=== PATIENT | female | born 1990 | race American Indian/Alaskan Native ===

== ENCOUNTER 2018-03-06 12:07 | Emergency (ER) | payer MEDICAID ==
[2018-03-06 13:15] LABS: Bilirubin,Urine NEG (Negative); Blood,Urine NEG (Negative); Color,Urine Yellow (Yellow); Protein,Urine <15 mg/dL mg/dL (Negative); Urobilinogen,Urine < 2.0 mg/dL (<2.0)
[2018-03-06 13:17] LABS: HCG Qualitative,Urine Positive (Negative)
[2018-03-06 13:29] LABS: Basophils % (Auto) 0.3 % (0.0-1.8); Eosinophils # (Auto) 0.1 K/mm3 (0.0-0.4); Eosinophils % (Auto) 0.4 % (0.0-4.3); Hematocrit 33.5 % (30.3-42.9); Hemoglobin 11.8 gm/dl (10.1-14.3); Lymphocytes # (Auto) 2.2 K/mm3 (1.2-5.4); Lymphocytes % (Auto) 18.4 % (13.4-35.0); Mean Corpuscular HGB Conc 35 % (30-34); Mean Corpuscular Hemoglobin 28 pg (28-32); Mean Corpuscular Volume 78 fl (79-97); Monocytes # (Auto) 0.6 K/mm3 (0.0-0.8); Monocytes % (Auto) 5.2 % (0.0-7.3); Platelet Count 218 K/mm3 (140-440); Red Cell Distribution Width 13.5 % (13.2-15.2)
[2018-03-06 13:36] LABS: BUN/Creatinine Ratio 10; Blood Urea Nitrogen 5 mg/dL (7-17); Calcium 8.8 mg/dL (8.4-10.2); Hemolysis Index 2
--- NOTE | 2018-03-06 14:24 | Emergency Department Report ---
ED Fall HPI - General Chief Complaint: Pain General Stated Complaint: FALL Time Seen by Provider: 03/06/18 13:55 Source: patient, EMS Mode of arrival: Stretcher Limitations: No Limitations - History of Present Illness Initial Comments: She is a 27-year-old female presents emergency room after a fall. Patient states she was running from a dog jumped over a fence and fell loss consciousness and woke up. Patient called EMS. Patient complains of bilateral thigh pain that is a 4 out of 10. Patient states the pain is worse with movement and better with rest. Patient states that she is unable to remember the entire event and is unsure if she hit her head. Patient is unsure how long she was unconscious. Patient states after she jumped a fence she fell and that is all she remembers. Patient has no recollection of the entire event after climbing the fence. Patient states she had some leg weakness but that is starting to improve. Patient denies back pain. Patient states she is having a headache at this time And is a 10 out of 10. MD Complaint: fall -: Sudden Fall From: from height (distance) When Fall Occurred: unsure Fall Witnessed: no Place Fall Occurred: street Loss of Consciousness: yes Prolonged Down Time?: unclear Symptoms Prior to Fall: none Location: head Location - Extremities: Left: Thigh, Right: Thigh Severity: moderate Severity scale (0 -10): 4 Quality: dull Context: other (fell after jumping over a fence) Associated Symptoms: denies: headache, neck pain, numbness, weakness, chest paint, shortness of breath, abdominal pain, hematuria, unable to walk, lightheaded, vertigo, confusion - Related Data Previous Rx's Medication Instructions Recorded Last Taken Type Sulfamethoxazole/Trimethoprim 1 each PO BID #14 tablet 12/07/13 Unknown Rx [Bactrim Ds] Allergies Allergy/AdvReac Type Severity Reaction Status Date / Time No Known Allergies Allergy Verified 12/07/13 08:28 ED Review of Systems ROS: Stated complaint: FALL Other details as noted in HPI Constitutional: denies: chills, fever Eyes: denies: eye pain, eye discharge, vision change ENT: denies: ear pain, throat pain Respiratory: denies: cough, shortness of breath, wheezing Cardiovascular: denies: chest pain, palpitations Endocrine: no symptoms reported Gastrointestinal: denies: abdominal pain, nausea, diarrhea Genitourinary: denies: urgency, dysuria, discharge Musculoskeletal: denies: back pain, joint swelling, arthralgia Skin: denies: rash, lesions Neurological: headache, weakness. denies: paresthesias Psychiatric: denies: anxiety, depression Hematological/Lymphatic: denies: easy bleeding, easy bruising ED Past Medical Hx - Past Medical History Previous Medical History?: No - Surgical History Past Surgical History?: No - Family History Family history: no significant - Social History Smoking Status: Never Smoker Substance Use Type: None - Medications Home Medications: Home Medications Medication Instructions Recorded Confirmed Last Taken Type Sulfamethoxazole/Trimethoprim 1 each PO BID #14 tablet 12/07/13 Unknown Rx [Bactrim Ds] ED Physical Exam - General Limitations: Physical Limitation General appearance: alert, in no apparent distress - Head Head exam: Present: atraumatic, normocephalic - Eye Eye exam: Present: normal appearance - ENT ENT exam: Present: mucous membranes moist - Neck Neck exam: Present: normal inspection - Respiratory Respiratory exam: Present: normal lung sounds bilaterally. Absent: respiratory distress - Cardiovascular Cardiovascular Exam: Present: regular rate, normal rhythm. Absent: systolic murmur, diastolic murmur, rubs, gallop - GI/Abdominal GI/Abdominal exam: Present: soft, distended, normal bowel sounds, other (gravid abdomen). Absent: tenderness, guarding, rebound, rigid - Extremities Exam Extremities exam: Present: normal inspection, full ROM, tenderness (tenderness noted over bilateral thighs.), normal capillary refill. Absent: pedal edema, joint swelling, calf tenderness - Back Exam Back exam: Present: normal inspection, full ROM. Absent: tenderness, CVA tenderness (R), CVA tenderness (L), muscle spasm, paraspinal tenderness, vertebral tenderness - Neurological Exam Neurological exam: Present: alert, oriented X3 - Psychiatric Psychiatric exam: Present: normal affect, normal mood - Skin Skin exam: Present: warm, dry, intact, normal color. Absent: rash ED Course Vital Signs 03/06/18 03/06/18 03/06/18 12:38 14:17 14:35 Temperature 98 F Pulse Rate 103 H 90 Respiratory 18 14 18 Rate Blood Pressure 97/67 Blood Pressure 116/59 [Right] O2 Sat by Pulse 100 98 100 Oximetry 03/06/18 17:39 Temperature 98.5 F Pulse Rate 89 Respiratory 16 Rate Blood Pressure Blood Pressure 123/61 [Right] O2 Sat by Pulse 99 Oximetry - Reevaluation(s) Reevaluation #1: Discussed all results with patient. Patient voiced understanding of results. Discharge instructions given to patient return to ER shocks given to patient. Patient voiced understanding of all instructions. Patient states her headache improved. Patient given concussion precautions. 03/06/18 18:20 ED Medical Decision Making - Lab Data Result diagrams: 03/06/18 13:03 03/06/18 13:03 - Radiology Data Radiology results: report reviewed FINAL REPORT EXAM: CT HEAD/BRAIN WO CON HISTORY: Altered Mental Status TECHNIQUE: Noncontrast CT axial images of the brain. PRIORS: None. FINDINGS: No parenchymal mass, mass effect, hemorrhage, midline shift or hydrocephalus. No evidence of acute cortical infarct. No abnormal, extra-axial fluid or air collection. Osseous calvarium grossly intact. IMPRESSION: 1. No acute intracranial findings. Transcribed By: [facility] Dictated By: YENNIFER RESTREPO MD Electronically Authenticated By: YENNIFER RESTREPO MD Signed Date/Time: 03/06/181724 TECHNIQUE: Frontal views of right femur. PRIORS: None. FINDINGS: No apparent fracture or dislocation. Soft tissues grossly unremarkable. IMPRESSION: 1. No acute osseous abnormality. Transcribed By: [facility] Dictated By: YENNIFER RESTREPO MD Electronically Authenticated By: YENNIFER RESTREPO MD Signed Date/Time: 03/06/181729 FINAL REPORT EXAM: XR FEMUR 1V LT HISTORY: garth thigh pain and fall TECHNIQUE: Frontal views of left femur. PRIORS: None. FINDINGS: No apparent fracture or dislocation. Soft tissues grossly unremarkable. IMPRESSION: 1. No acute osseous abnormality. Transcribed By: [facility] Dictated By: YENNIFER RESTREPO MD Electronically Authenticated By: YENNIFER RESTREPO MD Signed Date/Time: 03/06/181729 FINAL REPORT EXAM: US OB gt; = 14 WEEKS FETUS HISTORY: fall. pregancny TECHNIQUE: Transabdominal sonography of the pelvis. PRIORS: None. FINDINGS: There is a single, live intrauterine . Ultrasound estimated gestational age is 15 weeks 5 days. Ultrasound estimated date of delivery is 23 August 2018. heart motion is detected and heart rate is 152 beats per minute. Remainder of uterus and adnexa are grossly unremarkable. Cervical length 4.3 cm IMPRESSION: 1. Single, live intrauterine . Transcribed By: [facility] Dictated By: YENNIFER RESTREPO MD Electronically Authenticated By: YENNIFER RESTREPO MD Signed Date/Time: 03/06/18 1603 - Medical Decision Making Patient is a 27-year-old female presents emergency room after a fall with complaints of headache and leg pain. Patient is able 4. Patient's headache is improved with Tylenol. Patient had a CT of her head which is negative. Patient has CT done due to the fact that the patient was having such bad incidental amnesia and concussive symptoms. Patient stable during the entire stay in the ER. Patient answering questions appropriately at discharge. Patient voiced understanding of all discharge instructions. - Differential Diagnosis headache. Head injury. Concussion. Leg pain. FAll Critical care attestation.: If time is entered above; I have spent that time in minutes in the direct care of this critically ill patient, excluding procedure time. ED Disposition Clinical Impression: Consciousness loss, transient, Leg pain, bilateral Fall Qualifiers: Encounter type: initial encounter Qualified Code(s): W19.XXXA - Unspecified fall, initial encounter Concussion Qualifiers: Encounter type: initial encounter Loss of consciousness presence/duration: with LOC of unspecified duration Qualified Code(s): S06.0X9A - Concussion with loss of consciousness of unspecified duration, initial encounter Qualifiers: Weeks of gestation: 15 weeks Qualified Code(s): Z3A.15 - 15 weeks gestation of Thigh contusion Qualifiers: Encounter type: initial encounter Laterality: unspecified laterality Qualified Code(s): S70.10XA - Contusion of unspecified thigh, initial encounter Disposition: DC-01 TO HOME OR SELFCARE Is pt being admited?: No Does the pt Need Aspirin: No Condition: Stable Instructions: (ED), Concussion (ED), Minor Head Injury (ED), Post Concussion Syndrome (ED) Additional Instructions: Patient to follow up with primary care in 3-5 days. Patient to follow-up with [facility] in 2-3 days. Patient to return to ER if condition worsens. Patient to take Tylenol when necessary for pain. Patient to avoid NSAIDs. Patient to take vitamin. Patient to increase water. Patient to rest. Patient to follow concussion precautions. Patient to not drive. Referrals: PRIMARY CARE, [Primary Care Provider] - 3-5 Days Forms: Work/School Release Form(ED) Time of Disposition: 18:23
[2018-03-06] MEDS ORDERED: HYDROGEN PEROXIDE ONE (14:59)
--- NOTE | 2018-03-06 16:04 | Ultrasound Report ---
FINAL REPORT EXAM: US OB > = 14 WEEKS FETUS HISTORY: fall. pregancny TECHNIQUE: Transabdominal sonography of the pelvis. PRIORS: None. FINDINGS: There is a single, live intrauterine . Ultrasound estimated gestational age is 15 weeks 5 days. Ultrasound estimated date of delivery is 23 August 2018. heart motion is detected and heart rate is 152 beats per minute. Remainder of uterus and adnexa are grossly unremarkable. Cervical length 4.3 cm IMPRESSION: 1. Single, live intrauterine .
[2018-03-06] MEDS ORDERED: TYLENOL ONE (16:36)
--- NOTE | 2018-03-06 17:26 | Cat Scan Report ---
FINAL REPORT EXAM: CT HEAD/BRAIN WO CON HISTORY: Altered Mental Status TECHNIQUE: Noncontrast CT axial images of the brain. PRIORS: None. FINDINGS: No parenchymal mass, mass effect, hemorrhage, midline shift or hydrocephalus. No evidence of acute cortical infarct. No abnormal, extra-axial fluid or air collection. Osseous calvarium grossly intact. IMPRESSION: 1. No acute intracranial findings.
--- NOTE | 2018-03-06 17:31 | XRay Report ---
FINAL REPORT EXAM: XR FEMUR 1V RT HISTORY: leg pain adn fall TECHNIQUE: Frontal views of right femur. PRIORS: None. FINDINGS: No apparent fracture or dislocation. Soft tissues grossly unremarkable. IMPRESSION: 1. No acute osseous abnormality.
--- NOTE | 2018-03-06 17:32 | XRay Report ---
FINAL REPORT EXAM: XR FEMUR 1V LT HISTORY: garth thigh pain and fall TECHNIQUE: Frontal views of left femur. PRIORS: None. FINDINGS: No apparent fracture or dislocation. Soft tissues grossly unremarkable. IMPRESSION: 1. No acute osseous abnormality.
[2018-03-06 17:40] VITALS: BP 123/61
== END 2018-03-06 19:04 | disposition home or self-care (01) ==
LOC: ED 12:07
DX: O9A.212 Injury, poisoning and certain other consequences of external causes complicating pregnancy, second trimester (principal); S06.0X9A Concussion with loss of consciousness of unspecified duration, initial encounter; S70.12XA Contusion of left thigh, initial encounter; S70.11XA Contusion of right thigh, initial encounter; Z3A.15 15 weeks gestation of pregnancy; W17.89XA Other fall from one level to another, initial encounter; Y93.39 Activity, other involving climbing, rappelling and jumping off; Y92.89 Other specified places as the place of occurrence of the external cause; Y99.8 Other external cause status
CPT/HCPCS: 36415; 70450; 76805; 80048; 81001; 81025; 85025; 87086